=== PATIENT | female | born 1945 | race Caucasian/White ===

== ENCOUNTER → 2016-09-15 | Day surgery (SDC) | payer OTHER, MEDICARE ==
[~2016-09-15] VITALS: Ht 147.3 cm; Wt 71.7 kg
[~2016-09-15] MED LIST: AUGMENTIN 875 M1 TAB PO; CALCIUM 500 +1 EAC5 PO; HYDROCODONE BI120 M1 PO; LEVAQUIN500 M1 PO; LEXAPRO 10MG10 MG PO; LEXAPRO10 M1 PO; OMEPRAZOLE40 MG PO; PERCOCET 325 MG1 TA2 PO; SYMBICORT 160/41 PUF INH; VIBRAMYCIN100 MG PO; VITAMIN D1000 IU PO
--- NOTE | 2016-09-15 13:22 | Operative Report ---
Operative/Inv Procedure Report Surgery Date: 09/15/16 Name of Procedure: Left partial mastectomy with wire localization and sentinel lymph node biopsy Pre-Operative Diagnosis: Left breast cancer Post-Operative Diagnosis: Same Estimated Blood Loss: less than 50ml Surgeon/Chief Supply Chain Officer: VISHNU CLEMENTS MD Anesthesia: laryngeal mask airway Specimens: Left lumpectomy, cranial margin, caudal margin, medial margin, lateral margin, deep margin, sentinel lymph node Operative/Procedure Note Note: Patient brought to the operating room on 09/15/2016 after preoperative wire localization and lymphoscintigraphy were performed and the films were reviewed. She was given 2 g of Ancef and the left breast was prepped and draped in sterile fashion using ChloraPrep. 3 mL of methylene blue diluted with 2 mL of saline was injected in the retroareolar fashion. The axilla was approached first. Local anesthesia 1% lidocaine mixed half percent Marcaine was given, and a transverse incision was made lower axilla. The subcutaneous tissue was dissected and the clavipectoral fascia was entered. There was a single hot lymph node which was identified and sent for pathology. There were no other hot , blue, or palpable lymph nodes in the axilla. The breast was then approached. Anesthesia was given and a curvilinear incision was made at 9:00 in the left breast. The wire was brought into the incision and the area of concern was grasped using an Allis clamp. The tissue is dissected from the subcutaneous tissue to encompass the area of concern. The specimen was removed and marked for orientation using margin map. Additional margins were taken in the cranial, caudal, medial, lateral, and deep positions. The deep dissection did go down to the pectoralis fashion. A 2 x 2 BioSorb marked with a fashion to the surrounding tissue using Maxon sutures. Tissues mobilized and closed over the marker as well with Vicryl sutures. Skin was closed using a running Biosyn subcutaneous color stitch. Steri-Strips and sterile dressings were applied and the patient was transferred to the recovery room in satisfactory condition having tolerated the procedure well.
--- NOTE | 2016-09-15 13:50 | MAMMOGRAPHY REPORT ---
EXAMINATION: MM PREOPERATIVE NEEDLE LOCALIZATION BREAST, LEFT MM NEEDLE LOCALIZATION SPECIMEN FROM BREAST, RIGHT CLINICAL INFORMATION: A 70-year-old female with invasive lobular carcinoma, at 2 o'clock, diagnosed on ultrasound-guided biopsy done on 08/23/2016. Preoperative needle localization is requested. PREOPERATIVE NEEDLE LOCALIZATION LEFT BREAST: TECHNIQUE: After the details of the procedure, as well as the risks, benefits and alternatives to the procedure, were explained to the patient in detail, and all of her questions were answered, preoperative needle localization was performed. Mammographic imaging of the left breast in the LM projection confirms the presence of a tissue marker (ribbon-shaped metallic clip) at the site of the prior ultrasound-guided biopsy at 2 o'clock, 3 cm from the nipple. The skin of the left breast was then cleansed with sterile solution. Using mammographic guidance, aseptic technique and 2% 10 mL lidocaine for local anesthesia, a 7cm Chain needle-wire system was advanced into the breast from a lateral approach. Orthogonal views were then obtained. Final adjustments of the needle tip position were made, and the wire deployed. The needle was taken out. The patient tolerated the procedure well, and was discharged from the department of radiology in good stable condition. The images were appropriately labelled. A worksheet was appropriately filled out and was sent with the patient to the OR. IMPRESSION: Successful mammographically-guided preoperative needle localization of the invasive lobular carcinoma at 2 o'clock, 3 cm from the nipple. NEEDLE LOCALIZATION SPECIMEN FROM LEFT BREAST: TECHNIQUE: Single radiograph of the excised breast tissue is performed. FINDINGS: The specimen shows the hookwire is delivered intact. The biopsy clip marker is identified in the specimen. IMPRESSION: Successful needle localization of the biopsy-proven invasive lobular carcinoma at 2 o'clock, 3 cm from the nipple. Results were called to Dr. Tyler in the operating room at the time of imaging. The histology report is pending.
== END ==
LOC: STS 01:46
DX: C50.912 Malignant neoplasm of unspecified site of left female breast (principal); Z17.0 Estrogen receptor positive status [ER+]; E78.00 Pure hypercholesterolemia, unspecified; H81.01 Meniere's disease, right ear
CPT/HCPCS: 88305; 88307; A9520; C9728; J0131; J0690; J1885; J2001; J2250; J2405

== ENCOUNTER → 2016-09-29 | Day surgery (SDC) | payer OTHER, MEDICARE ==
[~2016-09-29] VITALS: Ht 147.3 cm; Wt 71.7 kg
--- NOTE | 2016-09-29 09:19 | Operative Report ---
Operative/Inv Procedure Report Surgery Date: 09/29/16 Name of Procedure: Reexcision left lumpectomy Pre-Operative Diagnosis: Breast cancer, positive margin Post-Operative Diagnosis: Same Estimated Blood Loss: scant Surgeon/[employer]: VISHNU CLEMENTS MD Anesthesia: local monitored anesthesi Specimens: Skin margin, cranial margin, caudal margin Operative/Procedure Note Note: Patient was brought to the operating room after left lumpectomy showing positive anterior margin and close cranial and caudal margins. She was given 2 g of Ancef in the left breast was prepped and draped in sterile fashion ChloraPrep. Previous incision was curvilinear incision at 3:00. Event nipple retraction laterally, a bat wing incision was used. The previous incision and ellipse of skin was removed and a suture was marked in the cranial aspect. The lumpectomy bed was visible. The BioSorb marker was removed. The full cranial margin was then excised. Sutures marked the true margin. Caudal margin was excised similarly. Tissue was mobilized off the pectoralis fascia and the skin. The BioSorb marker was cleansed with saline and replaced. Maxon sutures were used to fasten the marker to the breast tissue. Skin was then approximated using interrupted Vicryl sutures and the skin was closed using a running Biosyn subcuticular stitch. Surgical sterile dressings were applied and patient transferred to recovery in satisfactory condition having tolerated she well.
== END ==
LOC: STS 04:12
DX: C50.912 Malignant neoplasm of unspecified site of left female breast (principal); E78.00 Pure hypercholesterolemia, unspecified; J44.9 Chronic obstructive pulmonary disease, unspecified; F17.210 Nicotine dependence, cigarettes, uncomplicated; H81.01 Meniere's disease, right ear
CPT/HCPCS: 88305; J0131; J0690; J1885; J2250; J2405

== ENCOUNTER 2017-02-02 09:21 | Emergency (ER) | payer OTHER, MEDICARE ==
[~2017-02-02] VITALS: Ht 147.3 cm; Wt 69.9 kg
[~2017-02-02 09:21] MED LIST changes: -VIBRAMYCIN100 MG PO
[2017-02-02 09:59] VITALS: BP 143/79
--- NOTE | 2017-02-02 11:41 | ED GENERAL ADULT ---
History of Present Illness General Chief Complaint: Skin Rash/ Abcess Stated Complaint: ABCESS ON LABIA Source: patient Exam Limitations: no limitations Vital Signs & Intake/Output Vital Signs & Intake/Output Vital Signs Date Time Temp Pulse Resp B/P B/P Pulse O2 O2 Flow FiO2 Mean Ox Delivery Rate 02/02 1332 99 Room Air 02/02 0959 96.5 86 18 143/79 96 Room Air Allergies Coded Allergies: venom-honey bee (BEE VENOM (HONEY BEE)) (Severe, ANAPHYLAXIS 11/11/15) Sulfa (Sulfonamide Antibiotics) (BURN 11/11/15) diphenhydramine (UNKNOWN 11/11/15) NSAIDS (Non-Steroidal Anti-Inflamma (HX GI BLEED 09/11/16) aspirin (From FIORINAL) (N/V 11/11/15) butalbital (From FIORINAL) (N/V 11/11/15) caffeine (From FIORINAL) (N/V 11/11/15) morphine (GI UPSET, N/V 11/11/15) Reconcile Medications Calcium Carbonate/Vitamin D3 (Calcium 500 + D Tablet) 500 MG-400 TABLET 1 TAB PO DAILY SUPPLEMENT (Reported) Doxycycline Hyclate (Vibramycin) 100 MG CAPSULE 1 CAP PO BID INFECTION Escitalopram Oxalate (Lexapro) 10 MG TABLET 1 TAB PO DAILY ANXIETY (Reported) Levofloxacin (Levaquin) (Unknown Strength) TABLET (Unknown Dose) PO DAILY UTI (Reported) Triage Note: PT COMPLAINS OF ABCESS TO HER LABIA FOR THE PAST 2 DAYS. Triage Nurses Notes Reviewed? yes Onset: Abrupt Duration: minute(s): Timing: recent history HPI: 02/02. 12:15 PM 71-year-old female presents to the emergency department for right-sided labial abscess. She says she had a pimple there and made an appointment with her transportation engineer. However it is gotten significantly bigger and is causing pain. The onset of the symptoms were abrupt, the duration has been approximately 7 days, the severity is significant; as her symptoms required her to come to the emergency department for care. On physical examination she does have a right sided labial abscess. There is no fever. There is no history of diabetes. Her sepsis screen is negative. Past History Travel History Traveled to [place] past 21 day No Medical History Any Pertinent Medical History? 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 No Review of Systems Review of Systems Constitutional: Denies: fever. EENTM: Denies: visual changes. Respiratory: Denies: short of breath. Cardiovascular: Denies: chest pain. GI: Denies: abdominal pain. Genitourinary: Reports: no symptoms. Musculoskeletal: Reports: no symptoms. Skin: Reports: see HPI. Neurological/Psychological: Reports: no symptoms. Hematologic/Endocrine: Reports: no symptoms. Immunologic/Allergic: Reports: no symptoms. Physical Exam Physical Exam General Appearance: well developed/nourished, alert, awake, anxious, mild distress Head: atraumatic, normal appearance Eyes: Bilateral: normal appearance, PERRL, EOMI. Ears, Nose, Throat: normal pharynx, normal ENT inspection Neck: normal inspection, supple Respiratory: normal breath sounds, chest non-tender, no respiratory distress Cardiovascular: regular rate/rhythm Peripheral Pulses: 4+ radial (R), 4+ radial (L) Gastrointestinal: soft, non-tender Back: normal range of motion Extremities: no edema Neurologic/Psych: no motor/sensory deficits, awake, alert, oriented x 3 Skin: abscess right labia Comments: exam-she had a right labial abscess approximately 2 inches. Procedure Under sterile technique and local anesthesia with 5 mL of lidocaine. The labial abscess was I&D. Presently 5 mL of rose pus was returned, loculations were disrupted. The area was cleaned with saline. It was packed with iodoform gauze. She tolerated the procedure well. There were no complications. A Tegaderm dressing was applied. Core Measures ACS in differential dx? No CVA/TIA Diagnosis: No Severe Sepsis Present: No Septic Shock Present: No Progress Differential Diagnoses I considered the following diagnoses in my evaluation of the patient: [Abscess, cellulitis, necrotizing fasciitis] Plan of Care: Orders Procedure Date/time Status GENITAL CULTURE 02/02 1217 Active Microbiology 02/02 1314 GENITAL: Genital Culture - RECD Initial ED EKG: none Departure Departure Disposition: HOME OR SELF CARE Condition: Stable Clinical Impression Primary Impression: Labial abscess Referrals: MENG ELLSWORTH,DANIS Pastor (PCP/Family) Departure Forms: Customer Survey General Discharge Information Prescriptions: Current Visit Scripts Doxycycline Hyclate (Vibramycin) 1 CAP PO BID #20 CAP Comments The patient was treated with doxycycline. She will follow-up in ED in 48 hours for packing removal. Critical Care Note Critical Care Note Critical Care Time: non-applicable
[2017-02-02] MEDS ORDERED: VIBRAMYCIN100 MG PO (13:07)
== END 2017-02-02 13:58 ==
LOC: ERH 09:21
DX: N76.4 Abscess of vulva (principal)
CPT/HCPCS: 87070